=== PATIENT | female | born 1990 | race African-American/Black ===

== ENCOUNTER 2020-02-14 10:15 | Inpatient (IN) | payer BC, OTHER ==
[~2020-02-14] VITALS: Ht 160 cm; Wt 59.0 kg
--- NOTE | 2020-02-14 10:23 | NUR ---
CAME IN FOR INTERMITTENT RUQ PAIN RADIATING TO THE BACK x 1WEEK, TO ER BED 10, HOOKED TO MONITOR, CHANGED TO HOSP GOWN, WARM BLANKET PROVIDED, PATIENT AAO x 4, BREATHING EVEN AND UNABORED, DR GUALLPA AT BEDSIDE FOR EVAL.
[2020-02-14] MEDS ORDERED: ONDANSETRON HCL/PF 4 MG/2 ML VIAL ONE (10:38)
[2020-02-14] MEDS ORDERED: KETOROLAC TROMETHAMINE 15 MG/ML VIAL ONE (10:38)
[2020-02-14 10:50] LABS: BASOPHILS % (AUTO) 0.5 % (0.0-2.0); EOSINOPHILS % (AUTO) 0.8 % (0.0-6.0); HEMATOCRIT 42 % (33-45); LYMPHOCYTES # (AUTO) 0.7 /CMM (0.8-4.8); LYMPHOCYTES % (AUTO) 11.4 % (20.0-44.0); MEAN CORPUSCULAR HGB CONC 33 g/dl (31.0-36.0); MEAN CORPUSCULAR VOLUME 86 fL (82-100); MONOCYTES # (AUTO) 0.2 /CMM (0.1-1.30); MONOCYTES % (AUTO) 3.7 % (2.0-12.0); NEUTROPHILS % (AUTO) 83.6 % (43.0-81.0); PLATELET COUNT (AUTO) 262 /CMM (150-450); RED BLOOD CELL COUNT(AUTO) 4.91 MIL/uL (4.0-5.2)
[2020-02-14 10:59] LABS: CALCIUM, SERUM 8.9 mg/dL (8.5-10.1); CREATININE 0.7 mg/dL (0.6-1.3); POTASSIUM 4.1 mmol/L (3.5-5.1)
[2020-02-14] MEDS ORDERED: ONDANSETRON HCL/PF 4 MG/2 ML VIAL IVP ONE (11:00)
[2020-02-14] MEDS ORDERED: KETOROLAC TROMETHAMINE INJ 30 MG/ML VIAL IV ONE (11:00)
[2020-02-14] MEDS ORDERED: IV NS 0.9% 1,000 ML BAG IV ONE (11:00)
[2020-02-14 11:04] LABS: ALBUMIN 3.8 g/dL (3.4-5.0); BILIRUBIN,DIRECT 1.2 mg/dL (0.0-0.2); BILIRUBIN,TOTAL 2.9 mg/dL (0.2-1.0); TOTAL PROTEIN, SERUM 7.3 g/dL (6.4-8.2)
--- NOTE | 2020-02-14 11:41 | NUR ---
VICE PRESIDENT INVESTOR RELATIONS AT BEDSIDE FOR US
[2020-02-14] MEDS ORDERED: PIPERACILLIN /TAZOBACTAM 3.375 G VIAL IV ONE (12:05)
[2020-02-14] MEDS ORDERED: IBUP-1955 PO (12:09)
--- NOTE | 2020-02-14 12:19 | NUR ---
CALLED [facility], PAGED GORDO TOPETE
[2020-02-14] MEDS ORDERED: PIPERACILLIN /TAZOBACTAM 3.375 G in IV D5W 50 ML IV ONE (12:30)
--- NOTE | 2020-02-14 12:53 | NUR ---
REPORT GIVEN TO SCOTT CALHOUN OF MS UNIT, ROOM 208-2
--- NOTE | 2020-02-14 13:44 | NUR ---
Received patient from ER via gurney. Patient is ambulatory, a/o x4, able to make needs known. Not in any form of distress. No sob, tolerating room air, satting 98%. Tolerating RUQ pain at this time on a scale of 2/10. iv access on L hand, intact and patent. Situated patient. belongings check. "No wounds" per patient,refused skin/body check. Kept patient safe and comfortable. Bed in low/locked position, siderails upx2, call light in reach. Will cont to monitor accordingly.
[2020-02-14 13:45] VITALS: BP 135/93
[2020-02-14] MEDS ORDERED: ACETAMINOPHEN 325 MG TABLET PO PRN (15:00)
[2020-02-14] MEDS ORDERED: ZOLPIDEM TARTRATE 5 MG TABLET PO PRN (15:00)
[2020-02-14] MEDS ORDERED: KETOROLAC TROMETHAMINE INJ 30 MG/ML VIAL IV PRN (15:00)
[2020-02-14] MEDS: IV D5/0.45 NACL 1,000 ML IV PRN (15:03)
[2020-02-14] MEDS: PANTOPRAZOLE 40 MG VIAL IV SCH (15:04)
[2020-02-14 16:00] VITALS: BP 133/87
--- NOTE | 2020-02-14 19:30 | NUR ---
MS RN RECEIVE PT IN BED AWAKE AND NOT IN DISTRESS, NO COMPLAIN OF PAIN, SAFETY MEASURES AT ALL TIMES. WILL CONT TO MONITOR
--- NOTE | 2020-02-14 19:37 | NUR ---
RN CLOSING NOTES PATIENT IN STABLE CONDITION. ALL NEEDS ATTENDED AND PROVIDED. ALL DUE MEDS GIVEN ORDERED. ASSISTED PATIENT WITH ADLS. KEPT PATIENT SAFE AND COMFORTABLE. BED IN LOW/LOCKED POSITION. SIDERAILS UPX2, CALL LIGHT IN REACH. ENDORSED TO NIGHT RN FOR ARNULFO.
[2020-02-14 20:00] VITALS: BP 121/82
[2020-02-14] MEDS: MORPHINE SULFATE INJ 2 MG/ML DISP.SYRIN IV PRN (23:37)
[2020-02-14] MEDS: ONDANSETRON HCL/PF 4 MG/2 ML VIAL IVP PRN (23:38)
[2020-02-15] MEDS: IV D5/0.45 NACL 1,000 ML IV PRN ×2 (04:54→19:08)
--- NOTE | 2020-02-15 05:28 | NUR ---
MS RN PT MONITORED ACCORDINGLY, NEEDS ATTENDED AND ANTICIPATED, NO S/S OF DISTRESS, KEPT CLEAN, DRY AND COMFORTABLE. SAFETY MEASURES AT ALL TIMES. WILL ENDORSE TO NEXT SHIFT.
[2020-02-15 08:00] VITALS: BP 131/84
--- NOTE | 2020-02-15 08:00 | NUR ---
rn notes RECEIVED PATIENT IN THE BED A/O X4, ON ROOM AIR, NO ACUTE RESPIRATORY DISTRESS, WAS REFUSED PAIN AT THIS TIME, V/S WNL. INFUSING D5 1/2 NS AT 75 ML/HR ON RIGHT HAND INTACT. CALL LIGHT WITHIN TO REACH, CONTINUED MONITORING.
[2020-02-15 08:29] VITALS: BP 131/84
[2020-02-15] MEDS: PANTOPRAZOLE 40 MG VIAL IV SCH (09:19)
[2020-02-15 09:39] LABS: BASOPHILS % (AUTO) 0.6 % (0.0-2.0); HEMATOCRIT 38 % (33-45); HEMOGLOBIN 12.3 g/dL (11.5-14.8); LYMPHOCYTES # (AUTO) 1.2 /CMM (0.8-4.8); LYMPHOCYTES % (AUTO) 24.5 % (20.0-44.0); MEAN CORPUSCULAR HGB CONC 33 g/dl (31.0-36.0); MEAN CORPUSCULAR VOLUME 87 fL (82-100); MONOCYTES # (AUTO) 0.2 /CMM (0.1-1.30); MONOCYTES % (AUTO) 4.5 % (2.0-12.0); NEUTROPHILS # (AUTO) 3.3 /CMM (1.8-8.9); NEUTROPHILS % (AUTO) 66.4 % (43.0-81.0); PLATELET COUNT (AUTO) 199 /CMM (150-450); RED BLOOD CELL COUNT(AUTO) 4.33 MIL/uL (4.0-5.2)
[2020-02-15 09:52] LABS: BILIRUBIN,TOTAL 2.2 mg/dL (0.2-1.0); CREATININE 0.7 mg/dL (0.6-1.3); POTASSIUM 3.5 mmol/L (3.5-5.1)
[2020-02-15] MEDS: MORPHINE SULFATE INJ 2 MG/ML DISP.SYRIN IV PRN (12:40)
--- NOTE | 2020-02-15 12:40 | NUR ---
RN NOTES ADMINISTERED MORPHINE SULFATE 2 MG/ML IV PUSH FOR RIGHT HYPOCHONDRIAC REGION 03/29 PER PATIENT REQUEST, V/S TAKEN BP-124/86, P-68, R-18. CONTINUED MONITORING.
[2020-02-15 16:30] VITALS: BP 122/77
--- NOTE | 2020-02-15 18:00 | NUR ---
RN NOTES PATIENT STABLE AMBULATING IN THE ROOM, REFUSED PAIN AT THIS TIME. SELF CARE, REFUSED PAIN. ENDORSED ONCOMING NURSE FOLLOW PLAN OF CARE.
--- NOTE | 2020-02-15 20:18 | NUR ---
RECEIVED IN BED ALERT AND ORIENTATED X4 DENIES PAIN OR NAUSEA. SMILING AND IN [employer] IV INFUSING
[2020-02-15 21:27] VITALS: BP 125/81
[2020-02-16] MEDS: ONDANSETRON HCL/PF 4 MG/2 ML VIAL IVP PRN (00:52)
--- NOTE | 2020-02-16 05:25 | NUR ---
ENDING NOTES: SLEPT WELL THRU THE NIGHT MEDICATED WITH ZOFRAN FOR NAUSEA AND THIS WAS EFFECTIVE AND TORADOL 15 MG FOR ABD PAIN AND THIS WAS EFFECTIVE. UNEVENTFUL NIGHT.
--- NOTE | 2020-02-16 07:20 | NUR ---
M/S RN NOTES PATIENT AWAKE, ALERT AND ORIENTED X4, NO RESPIRATORY DISTRESS, NO C/O PAIN AT THIS TIME. PATIENT'S SKIN WARM TO TOUCH, IV ACCESS SITE INTACT AND PATENT. PATIENT'S NEEDS ATTENDED, BED ON LOWEST LOCKED POSITION, CALL LIGHT WITHIN REACH. WILL CONTINUE TO MONITOR.
[2020-02-16 08:00] VITALS: BP 120/81
[2020-02-16] MEDS: PANTOPRAZOLE 40 MG VIAL IV SCH (08:25)
[2020-02-16] MEDS: IV D5/0.45 NACL 1,000 ML IV PRN (09:33)
[2020-02-16 16:00] VITALS: BP 130/86
--- NOTE | 2020-02-16 19:15 | NUR ---
M/S RN NOTES PATIENT RESTING IN BED, NO ACUTE DISTRESS, DENIES ANY PAIN AT THIS TIME. INFORMED PATIENT THAT ERCP PROCEDURE TO BE DONE AT 1PM WITH DR. HCRISTIANSON TOMORROW. PATIENT'S SKIN WARM TO TOUCH, IV ACCESS SITE INTACT AND PATENT. PATIENT'S NEEDS ATTENDED, BED ON LOWEST LOCKED POSITION, CALL LIGHT WITHIN REACH. WILL ENDORSE TO ONCOMING NURSE.
--- NOTE | 2020-02-16 19:30 | NUR ---
MS RN OPENING NOTES RECEIVED PATIENT FROM MORNING SHIFT, ALERT AND ORIENTED X 4. VERBALLY RESPONSIVE AND ABLE TO FOLLOW DIRECTIONS. BREATHING REGULAR AND UNLABORED ON ROOM AIR. RIGHT FOREARM G20 IV LINE INTACT AND PATENT, INFUSING WELL WITH NO BLEEDING OR S/S OF INFILTRATION NOTED. DENIES SUICIDAL IDEATION OR PAIN/DISCOMFORT AT THIS TIME. ADVISED ON NOTHING BY MOUTH STARTING MIDNIGHT FOR EGD AND ERCP. BED LOW AND LOCKED ON SEMI FOWLERS POSITION. CALL LIGHT IN REACH. WILL CONTINUE TO MONITOR.
[2020-02-16 20:00] VITALS: BP 128/86
[2020-02-17] MEDS: IV D5/0.45 NACL 1,000 ML IV PRN ×2 (00:06→19:16)
--- NOTE | 2020-02-17 06:25 | NUR ---
MS RN CLOSING NOTES PATIENT IN BED ALERT AND ORIENTED X 4. AFEBRILE WITH NO S/S OF DISTRESS OBSERVED. RIGHT FOREARM G20 IV LINE PATENT AND INFUSING WELL. NO COMPLAINTS OF PAIN/DISCOMFORT REPORTED AT THIS TIME. MAINTAINED NOTHING BY MOUTH. BED LOW AND LOCKED ON SEMI FOWLERS POSITION. CALL LIGHT IN REACH. WILL ENDORSE TO MORNING SHIFT FOR ARNULFO.
--- NOTE | 2020-02-17 07:15 | NUR ---
M/S RN NOTES PATIENT AWAKE, ALERT AND ORIENTED X4, NO RESPIRATORY DISTRESS, NO C/O PAIN AT THIS TIME. PATIENT'S SKIN WARM TO TOUCH, IV ACCESS SITE INTACT AND PATENT. PATIENT ON NPO STATUS FOR PROCEDURE TODAY. PATIENT'S NEEDS ATTENDED, BED ON LOWEST LOCKED POSITION, CALL LIGHT WITHIN REACH. WILL CONTINUE TO MONITOR.
[2020-02-17 07:17] LABS: BASOPHILS % (AUTO) 0.6 % (0.0-2.0); EOSINOPHILS % (AUTO) 2.8 % (0.0-6.0); HEMATOCRIT 38 % (33-45); HEMOGLOBIN 12.5 g/dL (11.5-14.8); LYMPHOCYTES # (AUTO) 2.1 /CMM (0.8-4.8); LYMPHOCYTES % (AUTO) 31.9 % (20.0-44.0); MEAN CORPUSCULAR HGB CONC 33 g/dl (31.0-36.0); MEAN CORPUSCULAR VOLUME 87 fL (82-100); MONOCYTES # (AUTO) 0.4 /CMM (0.1-1.30); MONOCYTES % (AUTO) 5.9 % (2.0-12.0); NEUTROPHILS # (AUTO) 3.9 /CMM (1.8-8.9); NEUTROPHILS % (AUTO) 58.8 % (43.0-81.0); PLATELET COUNT (AUTO) 216 /CMM (150-450); RED BLOOD CELL COUNT(AUTO) 4.38 MIL/uL (4.0-5.2); WHITE BLOOD COUNT (AUTO) 6.7 K/uL (4.3-11.0)
[2020-02-17 07:30] LABS: ALBUMIN 3.2 g/dL (3.4-5.0); BILIRUBIN,TOTAL 1.2 mg/dL (0.2-1.0); CALCIUM, SERUM 8.5 mg/dL (8.5-10.1); CREATININE 0.6 mg/dL (0.6-1.3); MAGNESIUM 1.9 mg/dL (1.8-2.4); PHOSPHORUS 4.2 mg/dL (2.5-4.9); POTASSIUM 3.2 mmol/L (3.5-5.1); TOTAL PROTEIN, SERUM 6.6 g/dL (6.4-8.2)
[2020-02-17 08:00] VITALS: BP 121/90
[2020-02-17] MEDS: PANTOPRAZOLE 40 MG VIAL IV SCH (08:26)
[2020-02-17] MEDS: POTASSIUM CHLORIDE 20 MEQ TAB.PRT.SR PO SCH ×2 (10:13→11:26)
[2020-02-17] MEDS ORDERED: IOHEXOL 240MG/ML 50 ML IV ONE (11:16)
[2020-02-17] MEDS ORDERED: ANESTHESIA TRAY IN PYXIS 1 EA TRAY MC ONE (11:18)
[2020-02-17] MEDS ORDERED: IOHEXOL 240MG/ML 100 ML IV ONE (11:24)
[2020-02-17] MEDS ORDERED: INDOMETHACIN 50 MG SUPP.RECT ONE (12:10)
[2020-02-17] MEDS ORDERED: SCOPOLAMINE HBR 1 EA PATCH.TD72 TD ONE (13:11)
[2020-02-17] MEDS ORDERED: MIDAZOLAM HCL 2 MG/2ML VIAL ONE (13:11)
--- NOTE | 2020-02-17 15:25 | NUR ---
M/S RN NOTES PATIENT CAME BACK FROM SURGERY, VSS 120/77, HR 72, RR 18, T 97.8, O2 100%. NO ACUTE DISTRESS NOTED, NO C/O PAIN AT THIS TIME. SKIN WARM TO TOUCH, IV ACCESS SITES INTACT AND PATENT. ORDERS FROM MD CARRIED OUT. WILL CONTINUE TO MONITOR PATIENT.
[2020-02-17 16:00] VITALS: BP 120/77
--- NOTE | 2020-02-17 18:45 | NUR ---
M/S RN NOTES PATIENT RESTING IN BED, NO ACUTE DISTRESS, DENIES ANY PAIN AT THIS TIME. PATIENT'S SKIN WARM TO TOUCH, IV ACCESS SITE INTACT AND PATENT. PATIENT'S NEEDS ATTENDED, BED ON LOWEST LOCKED POSITION, CALL LIGHT WITHIN REACH. WILL ENDORSE TO ONCOMING NURSE.
--- NOTE | 2020-02-17 19:50 | NUR ---
MS RN OPENING NOTES RECEIVED PATIENT FROM MORNING SHIFT, ALERT AND ORIENTED X 4. VERBALLY RESPONSIVE AND ABLE TO FOLLOW DIRECTIONS. BREATHING REGULAR AND UNLABORED ON ROOM AIR. RIGHT FOREARM G20 IV LINE INTACT AND PATENT, INFUSING WELL WITH NO BLEEDING OR S/S OF INFILTRATION NOTED. S/P ERCP WITH NO COMPLICATION SEEN AT THIS TIME. COMPLAINED OF 2/10 THROAT PAIN, NON-PHARMACOLOGICAL INTERVENTIONS PROVIDED. BED LOW AND LOCKED ON SEMI FOWLERS POSITION. CALL LIGHT IN REACH. WILL CONTINUE TO MONITOR.
[2020-02-17 20:00] VITALS: BP 110/57
[2020-02-17 20:09] VITALS: BP 110/57
--- NOTE | 2020-02-18 06:30 | NUR ---
MS RN CLOSING NOTES PATIENT IN BED ALERT AND ORIENTED X 4. AFEBRILE WITH NO S/S OF DISTRESS OBSERVED. RIGHT FOREARM G20 IV LINE PATENT AND INFUSING WELL. NO COMPLAINTS OF PAIN/DISCOMFORT REPORTED AT THIS TIME. BED LOW AND LOCKED ON SEMI FOWLERS POSITION. CALL LIGHT IN REACH. WILL ENDORSE TO MORNING SHIFT FOR ARNULFO.
[2020-02-18 07:36] LABS: BASOPHILS % (AUTO) 0.1 % (0.0-2.0); EOSINOPHILS % (AUTO) 0.2 % (0.0-6.0); HEMATOCRIT 40 % (33-45); LYMPHOCYTES # (AUTO) 1.3 /CMM (0.8-4.8); LYMPHOCYTES % (AUTO) 12.7 % (20.0-44.0); MEAN CORPUSCULAR HGB CONC 33 g/dl (31.0-36.0); MEAN CORPUSCULAR VOLUME 87 fL (82-100); MONOCYTES # (AUTO) 0.5 /CMM (0.1-1.30); NEUTROPHILS # (AUTO) 8.6 /CMM (1.8-8.9); PLATELET COUNT (AUTO) 253 /CMM (150-450); RED BLOOD CELL COUNT(AUTO) 4.59 MIL/uL (4.0-5.2); WHITE BLOOD COUNT (AUTO) 10.5 K/uL (4.3-11.0)
[2020-02-18 08:00] VITALS: BP 118/65
--- NOTE | 2020-02-18 08:00 | NUR ---
MS RN OPENING NOTES Received Patient awake and resting in bed. A/O x 4. VS stable with no acute distress. Breathing even and unlabored on room air with no respiratory distress. Denies pain. No signs and symptoms of pain. 20g PIV on RFA clean, intact, patent and flushing well with D51/2NS infusing at 75ml/hr. Safety precautions in place. Bed locked and set to lowest position with side rails x 2 up. All needs rendered at this time. Call light within reach. Will continue to monitor.
[2020-02-18 08:01] LABS: ALBUMIN 3.4 g/dL (3.4-5.0); BILIRUBIN,TOTAL 0.9 mg/dL (0.2-1.0); CALCIUM, SERUM 8.9 mg/dL (8.5-10.1); CREATININE 0.6 mg/dL (0.6-1.3); MAGNESIUM 1.9 mg/dL (1.8-2.4); PHOSPHORUS 4.8 mg/dL (2.5-4.9); POTASSIUM 3.5 mmol/L (3.5-5.1); TOTAL PROTEIN, SERUM 6.9 g/dL (6.4-8.2)
[2020-02-18] MEDS: PANTOPRAZOLE 40 MG VIAL IV SCH (09:01)
--- NOTE | 2020-02-18 13:15 | NUR ---
MS STRUCTURAL DRAFTSMAN NOTES Patient discharged for home at this time. VS stable with no acute distress. Breathing even and unlabored on room air with no respiratory distress. Denies pain. No signs and symptoms of pain. Skin intact. Medication reconciliation and discharge instructions reviewed and explained with Patient. Patient verbalized understanding. All belongings with Patient. Patient will follow up with surgery in 1 week. Escorted Patient to the Lobby for safety. Patient picked up by family.
== END 2020-02-18 14:15 | disposition home or self-care (01) | DRG 446 ==
LOC: ER 10:15 → MEDSG2 12:54
PROVIDERS: ADMIT Nurse Practitioner Acute Care; ATTEND Student in an Organized Health Care Education/Training Program
PROC: 0F798ZZ Dilation of Common Bile Duct, Via Natural or Artificial Opening Endoscopic (ICD-10-PCS; principal; 2020-02-17)
DX: K80.20 Calculus of gallbladder without cholecystitis without obstruction (principal); R74.0 Nonspecific elevation of levels of transaminase and lactic acid dehydrogenase [LDH]; E80.6 Other disorders of bilirubin metabolism
CPT/HCPCS: 36415; 74018; 74181-TC; 76705-TC; 80048-TC; 80053-TC; 80061-TC; 80076-TC; 83690-TC; 83735-TC; 84100-TC; 84703-TC; 85025-TC; 85610-TC; 85730-TC; 86850-TC; 87081-TC; C9113; G0378; J1100; J1885; J2250; J2270; J2405; J2543; J3490; J7030; J7060; J7070; Q9966

== ENCOUNTER → 2020-06-18 | Outpatient (CLI) | payer BC, OTHER ==
[~2020-06-18] MED LIST: IBUP-1955 PO
== END | disposition home or self-care (01) ==
LOC: LAB 08:30
PROVIDERS: ATTEND Surgery
DX: Z01.812 Encounter for preprocedural laboratory examination (principal); Z20.828 Contact with and (suspected) exposure to other viral communicable diseases
CPT/HCPCS: 87426; C9803 ×2; U0003

== ENCOUNTER 2020-06-22 11:07 | Day surgery (SDC) | payer BC, OTHER ==
--- NOTE | 2020-06-22 11:28 | NUR ---
MS RN ADMITTING NOTES PATIENT ADMITTED TO UNIT IN ROOM 329 AT 1128 FOR SCHEDULED SURGERY. PATIENT IS AMBULATORY, AWAKE AND VERBALLY RESPONSIVE, A/O X4, ABLE TO MAKE NEEDS KNOWN. NKA. BREATHING EVEN AND UNLABORED IN ROOM AIR, NOT IN ACUTE DISTRESS. BELONGINGS LIST AND CONSENT FORMS SIGNED BY PATIENT; CHECKLIST DONE. IV LINE G#20 INSERTED ON LAC, INTACT AND PATENT. URINE COLLECTED FOR STAT TEST. SAFETY PRECAUTIONS IN PLACE: BED LOCKED AND ON LOWEST POSITION, SR UP X2, CALL LIGHT W/IN REACH. WILL CONTINUE TO MONITOR.
[2020-06-22 11:30] VITALS: BP 134/88
--- NOTE | 2020-06-22 13:10 | NUR ---
RN NOTES PATIENT WAS PICKED UP FOR SCHEDULED SURGERY VIA PATIENT'S BED, ACCOMPANIED BY 2 OR TECHS. CONSENT FORMS ACKNOWLEDGED BY OR NURSE.
[2020-06-22] MEDS ORDERED: FENTANYL PF 100MCG/2ML AMPUL ONE (13:19)
[2020-06-22] MEDS ORDERED: PROPOFOL 20 ML IV ONE (13:20)
[2020-06-22] MEDS ORDERED: ROCURONIUM BROMIDE 50 MG/5 ML ONE (13:20)
[2020-06-22] MEDS ORDERED: MIDAZOLAM HCL 2 MG/2ML VIAL ONE (13:20)
[2020-06-22] MEDS ORDERED: BUPIVACAINE MPF 0.5% W/EPI INJ 30 ML VIAL ONE (13:43)
[2020-06-22] MEDS ORDERED: LIDOCAINE HCL/MPF 1% 30 ML VIAL IJ ONE (13:43)
[2020-06-22] MEDS ORDERED: IOHEXOL 240MG/ML 0 ML IV ONE (13:43)
[2020-06-22] MEDS ORDERED: IBUPROFEN 400 MG TABLET PO PRN (16:00)
[2020-06-22] MEDS ORDERED: ACETAMINOPHEN 325 MG TABLET PO PRN (16:00)
[2020-06-22] MEDS ORDERED: HYDROCODONE/APAP 5/325MG TABLET PO PRN (16:00)
[2020-06-22 16:05] VITALS: BP 115/76
--- NOTE | 2020-06-22 16:31 | NUR ---
RN NOTES SWAB SPECIMEN OF RIGHT NARES OBTAINED FOR MRSA. PLACED SPECIMEN IN REFRIGERATOR AND LAB INFORMED.
[2020-06-22 18:00] VITALS: BP 120/80
--- NOTE | 2020-06-22 18:03 | NUR ---
FRUIT STUFFER NOTES PATIENT DISCHARGE HOME TODAY AT 1800. PATIENT IS A/O X4, VS STABLE. INCISION SITES ON ABDOMEN INTACT AND NO BLEEDING NOTED, DRESSING C/D/I. PATIENT ABLE TO TOLERATE CLEAR LIQUID DIET. DISCHARGE INSTRUCTIONS PROVIDED TO PATIENT. PATIENT BELONGINGS LIST AND DISCHARGE FORM SIGNED. NAME ARMBAND AND PERIPHERAL IV LINE REMOVED. ACCOMPANIED PATIENT TO LOBBY, AND PICKED UP BY PATIENT'S FAMILY VIA PRIVATE CAR. CHARGE NURSE AND MD AWARE OF DISCHARGE.
== END 2020-06-22 18:00 | disposition home or self-care (01) ==
LOC: DS 11:07 → MED 11:10 → UNDOADMIN 11:10 → UNDODISIN 18:00 → DS 18:00
PROVIDERS: ATTEND Surgery
DX: K80.80 Other cholelithiasis without obstruction (principal)
CPT/HCPCS: 36415; 47100; 47562; 64486; 84703; 86850; 87081; 88304; 88307; 88313; J1100; J2250; J2704; J3010; J3490 ×3; G0378; Q9966